=== PATIENT | female | born 2000 | race Caucasian/White ===

== ENCOUNTER 2020-11-22 06:00 | Outpatient (CLI) | payer OTHER ==
[2020-11-22 06:47] VITALS: BP 124/87; PULSE 88; RESP 16; TEMP 97.3
--- NOTE | 2020-12-17 08:29 | P.MSEPDOC ---
Presenting Problems - Arrival Data Date of Arrival on Unit: 11/22/20 Time of Arrival on Unit: 06:00 Mode of Transport: Wheelchair - Complaint OB-Reason for Admission/Chief Complaint: Possible Onset of Labor Comment: contractions since 129 Medical History - Information : 1 Para: 0 Term: 0 : 0 Abortions: Spontaneous or Elective: 0 Number of Living Children: 0 - Gestational Age Gestational Age by JUAN ALBERTO (wks/days): 39 Weeks and 0 Days Review of Systems - Review of Systems Constitutional: No problems Breast: No problems ENT: No problems Cardiovascular: No problems Respiratory: No problems Gastrointestinal: No problems Genitourinary: No problems Musculoskeletal: No problems Neurological: No problems Skin: No problems Vital Signs - Temperature Temperature: 97.3 F Temperature Source: Temporal Artery Scan - Pulse Right Brachial Pulse Rate: 88 Pulse Assessment Method: Automatic Cuff - Respirations Respiratory Rate: 16 Oxygen Delivery Method: Room Air O2 Sat by Pulse Oximetry: 97 - Blood Pressure Right Arm Sitting Blood Pressure: 124/87 Blood Pressure Mean: 99 Blood Pressure Source: Automatic Cuff Medical Screen Scoring - Cervical Exam Dilation (cm): 6 Effacement (%): 80 Station: -2 Membranes: Intact - Uterine Contractions Frequency From (mins): 6 Duration From (seconds): 60 Intensity: Moderate Resting: Soft to palpation - Assessment - Baby A Baseline FHR: 135 Heart Rate - NICHD Category: Category I (Normal) NST: Reactive Physician Notification - Physician Notified Physician Notified Date: 11/22/20 Physician Notified Time: 06:25 Physician: Diana Junior New Order Received: Yes - Notification Comment Comment: DOM, ok to discharge per pt request to travel to [facility] for labor Maternal Triage Index - Maternal Triage Index Presenting for scheduled procedure w/no complaint: No - Stat/Priority 1 Stat Priority 1: No - Urgent/Priority 2 Urgent Priority 2: No - Prompt/Priority 3 Prompt Priority 3: No - Non-Urgent/Priority 4 Non-Urgent Priority 4: Yes Criteria Met for Priority 4: >37 weeks early labor signs Disposition - Disposition OB Disposition: Triage, Discharge to home, Written follow up instructions reviewed Discharge Date: 11/22/20 Discharge Time: 06:27 I agree with the RN Medical Screening Exam: Yes Case reviewed; plan agreed upon as documented in EMR[employer]BI[employer].: Yes Diagnosis: PRIMARY INADEQUATE CONTRACTIONS
== END 2020-11-22 06:27 | disposition home or self-care (01) ==
LOC: FBPOP 06:00
PROVIDERS: ATTEND Obstetrics & Gynecology
DX: O62.0 Primary inadequate contractions (principal); Z3A.39 39 weeks gestation of pregnancy
CPT/HCPCS: 59025; 99213

== ENCOUNTER → 2021-06-05 | Outpatient (CLI) | payer OTHER ==
--- NOTE | 2021-06-05 14:58 | US ---
EXAMINATION TYPE: US abdomen complete DATE OF EXAM: 06/05/2021 COMPARISON: NONE CLINICAL HISTORY: R10.84 Abd pain. Pt states generalized ABD pain EXAM MEASUREMENTS: Liver Length: 14.4 cm Gallbladder Wall: 0.2 cm CBD: 0.6 cm Spleen: 10.8 cm Right Kidney: 9.7 x 4.2 x 4.5 cm Left Kidney: 10.4 x 4.8 x 4.2 cm Pancreas: wnl, tail obscured by overlying bowel gas Liver: wnl Gallbladder: wnl Evidence for sonographic Triplett's sign: No CBD: wnl Spleen: wnl Right Kidney: wnl Left Kidney: wnl, lower pole gassed out Upper IVC: wnl Abd Aorta: wnl The liver is homogenous. The intrahepatic portion of the IVC and proximal abdominal aorta are within normal limits. There is no evidence of cholelithiasis. Common bile duct is unremarkable. The visu alized portions of the pancreas are homogenous. The spleen is unremarkable. Kidneys are symmetric a nd free of hydronephrosis. No renal lesions are seen. IMPRESSION: No abnormality visualized to account for pt's symptoms
--- NOTE | 2021-06-05 16:29 | XR ---
Bilateral knees HISTORY: Pain 2 views of each knee are submitted. No comparisons No sizable joint effusion. Bone mineralization, joint spaces and alignment are maintained. No fractur e or dislocation. IMPRESSION: No abnormality evident to account for patient's symptoms.
== END | disposition home or self-care (01) ==
LOC: RADUSWWP 14:01
PROVIDERS: ATTEND Internal Medicine
DX: R10.84 Generalized abdominal pain (principal); M25.561 Pain in right knee; M25.562 Pain in left knee
CPT/HCPCS: 76700

== ENCOUNTER → 2021-07-08 | Outpatient (CLI) | payer OTHER ==
--- NOTE | 2021-07-08 15:17 | XR ---
EXAMINATION TYPE: XR ankle limited LT DATE OF EXAM: 07/08/2021 COMPARISON: NONE HISTORY: Pain FINDINGS: Two views of the ankle demonstrate the ankle mortise to be intact and symmetric. The joint spaces ar e preserved. The osseous structures are intact. IMPRESSION: 1. No definite acute fracture or dislocation, if symptoms persist follow-up study in 7 to 10 days wou ld be suggested.
--- NOTE | 2021-07-08 15:19 | XR ---
EXAMINATION TYPE: XR foot limited LT DATE OF EXAM: 07/08/2021 COMPARISON: NONE HISTORY: Pain TECHNIQUE: Two views are submitted. FINDINGS: The osseous structures are intact. There is no acute fracture or dislocation. Joint spaces are p reserved. IMPRESSION: 1. No acute fracture or dislocation. If symptoms persist, follow-up exam in 7 to 10 days could be ob tained.
== END | disposition home or self-care (01) ==
LOC: RADXRMAIN 14:55
PROVIDERS: ATTEND Internal Medicine
DX: M25.572 Pain in left ankle and joints of left foot (principal); M79.672 Pain in left foot